=== PATIENT | female | born 1970 | race American Indian/Alaskan Native ===

== ENCOUNTER 2016-11-09 16:32 | Emergency (ER) | payer SELFPAY ==
[2016-11-09] MEDS ORDERED: VEETIDS PO ONE (19:26)
[2016-11-09] MEDS ORDERED: NORCO 5/325 PO ONE (19:26)
[2016-11-09] MEDS ORDERED: TRIMOX PO ONE (19:31)
[2016-11-09] MEDS ORDERED: TRIMOX ONE (19:31)
--- NOTE | 2016-11-09 19:48 | Emergency Department Report ---
ED ENT HPI - General Chief complaint: Dental/Oral Stated complaint: MOUTH PAIN Time Seen by Provider: 11/09/16 19:14 Source: patient Mode of arrival: Ambulatory Limitations: No Limitations - History of Present Illness Initial comments: Patient comes into the ER today with complaints of tooth pain and facial swelling that started yesterday. Patient denies any injury to the area. Patient states that she has had a bad tooth for some time and that she has not seen a dentist for it. Patient states the swelling and pain started yesterday. Patient denies any fever, chills, vomiting. Patient has been trying to take [id number] medications without any relief of the discomfort. complaint: tooth pain - Related Data Previous Rx's Medication Instructions Recorded Last Taken Type Penicillin Vk [Veetids TAB] 500 mg PO QID #80 tablet 11/09/16 Unknown Rx Tramadol HCl/Acetaminophen 2 each PO Q6HR PRN #30 tablet 11/09/16 Unknown Rx [Ultracet] Allergies Allergy/AdvReac Type Severity Reaction Status Date / Time No Known Allergies Allergy Verified 10/01/15 10:06 ED Dental HPI - General Chief complaint: Dental/Oral Stated complaint: MOUTH PAIN Time Seen by Provider: 11/09/16 19:14 Source: patient Mode of arrival: Ambulatory Limitations: No Limitations - Related Data Previous Rx's Medication Instructions Recorded Last Taken Type Penicillin Vk [Veetids TAB] 500 mg PO QID #80 tablet 11/09/16 Unknown Rx Tramadol HCl/Acetaminophen 2 each PO Q6HR PRN #30 tablet 11/09/16 Unknown Rx [Ultracet] Allergies Allergy/AdvReac Type Severity Reaction Status Date / Time No Known Allergies Allergy Verified 10/01/15 10:06 ED Review of Systems ROS: Stated complaint: MOUTH PAIN Other details as noted in HPI Constitutional: denies: chills, fever Eyes: denies: eye pain, eye discharge, vision change ENT: ear pain, dental pain, other (right maxillary facial swelling). denies: throat pain Respiratory: denies: cough, shortness of breath, wheezing Cardiovascular: denies: chest pain, palpitations Endocrine: no symptoms reported Gastrointestinal: denies: abdominal pain, nausea, diarrhea Genitourinary: denies: urgency, dysuria, discharge Musculoskeletal: denies: back pain, joint swelling, arthralgia Skin: denies: rash, lesions Neurological: denies: headache, weakness, paresthesias Psychiatric: denies: anxiety, depression Hematological/Lymphatic: denies: easy bleeding, easy bruising ED Past Medical Hx - Past Medical History Previous Medical History?: No - Surgical History Additional Surgical History: right ankle surgery-1992 - Social History Smoking Status: Never Smoker Substance Use Type: None - Medications Home Medications: Home Medications Medication Instructions Recorded Confirmed Last Taken Type Penicillin Vk [Veetids TAB] 500 mg PO QID #80 tablet 11/09/16 Unknown Rx Tramadol HCl/Acetaminophen 2 each PO Q6HR PRN #30 tablet 11/09/16 Unknown Rx [Ultracet] ED Physical Exam - General Limitations: No Limitations General appearance: alert, in no apparent distress - Head Head exam: Present: atraumatic, normocephalic - Eye Eye exam: Present: normal appearance, PERRL, EOMI. Absent: conjunctival injection Pupils: Present: normal accommodation - ENT ENT exam: Present: mucous membranes moist, TM's normal bilaterally, normal external ear exam, other (right upper dental decay noted in multiple teeth with mildly erythematous and swollen surrounding gums. No obvious abscess noted on examination. Right maxillary facial swelling and tenderness noted) - Neck Neck exam: Present: normal inspection, full ROM. Absent: tenderness, lymphadenopathy, thyromegaly - Respiratory Respiratory exam: Present: normal lung sounds bilaterally. Absent: respiratory distress - Cardiovascular Cardiovascular Exam: Present: regular rate, normal rhythm. Absent: systolic murmur, diastolic murmur, rubs, gallop - GI/Abdominal GI/Abdominal exam: Present: soft, normal bowel sounds - Extremities Exam Extremities exam: Present: normal inspection - Back Exam Back exam: Present: normal inspection - Neurological Exam Neurological exam: Present: alert, oriented X3 - Psychiatric Psychiatric exam: Present: normal affect, normal mood - Skin Skin exam: Present: warm, dry, intact, normal color. Absent: rash ED Course Vital Signs 11/09/16 11/09/16 16:39 16:45 Temperature 98.8 F 98.8 F Pulse Rate 74 74 Respiratory 18 Rate Blood Pressure 180/92 Blood Pressure 180/92 [Right] O2 Sat by Pulse 100 100 Oximetry ED Medical Decision Making - Medical Decision Making Patient is nontoxic and hemodynamically stable. Patient does have examination consistent with infected tooth. I suspect the infection has migrated up into the right maxillary sinus cavity and is causing her face to be mildly swollen and tender. Patient will be placed on antibiotics appropriately and I have encouraged patient to follow up with the dentist as soon as possible. Patient is in agreement with treatment plan and patient is stable for discharge. Critical care attestation.: If time is entered above; I have spent that time in minutes in the direct care of this critically ill patient, excluding procedure time. ED Disposition Clinical Impression: Pain, dental, Infected dental caries Disposition: DISCHARGED TO HOME OR SELFCARE Is pt being admited?: No Does the pt Need Aspirin: No Condition: Good Instructions: Dental Abscess (ED), Toothache (ED) Prescriptions: Penicillin Vk [Veetids TAB] 500 mg PO QID #80 tablet Tramadol HCl/Acetaminophen [Ultracet] 2 each PO Q6HR PRN #30 tablet PRN Reason: Pain Referrals: PRIMARY CARE,MD [Primary Care Provider] - 3-5 Days Forms: Work/School Release Form(ED) Time of Disposition: 19:51
[2016-11-10 05:01] VITALS: BP 184/101
== END 2016-11-09 20:10 | disposition home or self-care (01) ==
LOC: ED 16:32
DX: K02.9 Dental caries, unspecified (principal); K08.89 Other specified disorders of teeth and supporting structures; Z88.0 Allergy status to penicillin
CPT/HCPCS: 99282

== ENCOUNTER 2017-03-19 17:07 | Emergency (ER) | payer SELFPAY ==
[2017-03-19 18:13] VITALS: BP 151/76
--- NOTE | 2017-03-19 19:27 | Emergency Department Report ---
HPI - General Chief Complaint: Dental/Oral Time Seen by Provider: 03/19/17 19:05 - HPI HPI: 47-year-old female presents today complaining of right upper toothache 2 days. Positive for history of toothaches and dental caries. She states that she recently got her insurance and will be seeing a dentist in. Describes her pain as a 10 out of 10 constant stabbing headache. Tried ibuprofen without relief. ED Past Medical Hx - Past Medical History Previous Medical History?: Yes Additional medical history: vaginal dleivery x 3 - Surgical History Past Surgical History?: Yes Additional Surgical History: right ankle surgery-1992 - Social History Smoking Status: Current Every Day Smoker Substance Use Type: Alcohol, Non Opiate Pain - Medications Home Medications: Home Medications Medication Instructions Recorded Confirmed Last Taken Type Tramadol HCl/Acetaminophen 2 each PO Q6HR PRN #30 tablet 11/09/16 Unknown Rx [Ultracet] Acetaminophen/Codeine [Tylenol 1 tab PO Q6H PRN #16 tab 03/19/17 Unknown Rx /Codeine # 3 tab] Penicillin Vk [Veetids TAB] 500 mg PO QID #56 tablet 03/19/17 Unknown Rx ED Review of Systems ROS: Stated complaint: TOOTHACE Other details as noted in HPI Constitutional: denies: chills, fever, malaise Eyes: denies: eye pain ENT: dental pain. denies: ear pain, throat pain, congestion Respiratory: denies: cough, shortness of breath, wheezing Cardiovascular: denies: chest pain, palpitations Endocrine: no symptoms reported Gastrointestinal: denies: abdominal pain, nausea, vomiting Skin: denies: rash Neurological: denies: headache, weakness Physical Exam - Physical Exam Vital Signs: Vital Signs 03/19/17 18:09 Temperature 98.6 F Pulse Rate 70 Respiratory 18 Rate Blood Pressure 151/76 O2 Sat by Pulse 100 Oximetry Physical Exam: GENERAL: The patient is well-developed and well-nourished. Patient is in NAD. HEAD: Normocephalic. Atraumatic. EYES: Extraocular motions are intact, PERRL. EARS: External auditory canals and tympanic membranes clear; hearing grossly intact. NOSE: Normal nasal mucosa with no nasal discharge. THROAT: No erythema, swelling or exudates. DENTAL: TTP Right second molar, positive for dental carries. Poor dental hygiene. NECK: Supple, nontender, without lymphadenopathy. No meningitic signs are noted. CHEST/LUNGS: Clear to auscultation throughout. HEART/CARDIOVASCULAR: Regular rate and rhythm. No murmurs, rubs or gallops. ABDOMEN: Abdomen is soft, nontender. Bowel sounds normoactive. No guarding or rebound tenderness. EXTREMITIES: No cyanosis, clubbing or edema. Peripheral pulses intact. Capillary refill less than 2 seconds. NEURO: Alert and oriented x 3. Normal gait. ED Course Vital Signs 03/19/17 18:09 Temperature 98.6 F Pulse Rate 70 Respiratory 18 Rate Blood Pressure 151/76 O2 Sat by Pulse 100 Oximetry ED Medical Decision Making - Lab Data Vital Signs 03/19/17 18:09 Temperature 98.6 F Pulse Rate 70 Respiratory 18 Rate Blood Pressure 151/76 O2 Sat by Pulse 100 Oximetry - Medical Decision Making 47-year-old female presents today complaining of right upper toothache. Referral for dentist has been provided. Patient is in no acute distress at this time. She will be discharged home and is encouraged to follow up with a primary care provider. She will be sent home on penicillin VK and Tylenol 3 and is encouraged to return to the emergency room for any worsening symptoms. Critical care attestation.: If time is entered above; I have spent that time in minutes in the direct care of this critically ill patient, excluding procedure time. ED Disposition Clinical Impression: Tooth ache, Dental caries Disposition: - TO HOME OR SELFCARE Is pt being admited?: No Does the pt Need Aspirin: No Condition: Stable Instructions: Dental Caries (ED), Toothache (ED) Additional Instructions: Follow up with primary care provider and dentist. Return to the emergency department if symptoms worsen. Prescriptions: Acetaminophen/Codeine [Tylenol /Codeine # 3 tab] 1 tab PO Q6H PRN #16 tab PRN Reason: Pain Penicillin Vk [Veetids TAB] 500 mg PO QID #56 tablet Referrals: PRIMARY CARE, [Primary Care Provider] - 3-5 Days [facility] [Outside] - 3-5 Days [facility] [Outside] - 3-5 Days Forms: Work/School Release Form(ED) Time of Disposition: 19:28
== END 2017-03-19 19:38 | disposition home or self-care (01) ==
LOC: ED 17:07
DX: K02.9 Dental caries, unspecified (principal); F17.200 Nicotine dependence, unspecified, uncomplicated
CPT/HCPCS: 99282